=== PATIENT | female | born 1990 | race Caucasian/White ===

== ENCOUNTER 2017-06-06 16:13 | Emergency (ER) | payer MEDICAID ==
[~2017-06-06] VITALS: Ht 165.1 cm; Wt 82.0 kg
[2017-06-06] MEDS ORDERED: IBUPROFEN 600MG TABLET PO STA (23:12)
[2017-06-07 00:35] VITALS: BP 121/76
== END 2017-06-07 00:41 | disposition home or self-care (01) ==
LOC: ER 16:43
DX: S10.93XA Contusion of unspecified part of neck, initial encounter (principal); S00.93XA Contusion of unspecified part of head, initial encounter; S20.219A Contusion of unspecified front wall of thorax, initial encounter; S20.229A Contusion of unspecified back wall of thorax, initial encounter; R51 Headache; R03.0 Elevated blood-pressure reading, without diagnosis of hypertension; V49.49XA Driver injured in collision with other motor vehicles in traffic accident, initial encounter; Y93.89 Activity, other specified; Y92.488 Other paved roadways as the place of occurrence of the external cause
CPT/HCPCS: 71010; 99283

== ENCOUNTER 2022-08-07 21:40 | Emergency (ER) | payer MEDICAID, OTHER ==
[~2022-08-07] VITALS: Ht 165.1 cm; Wt 78.6 kg
[2022-08-08] MEDS ORDERED: BACITRACIN ZINC OINT UDPKT TOP ONE (02:45)
[2022-08-08] MEDS ORDERED: BO1 TP (03:47)
[2022-08-08 03:55] VITALS: BP 108/78
== END 2022-08-08 03:58 | disposition home or self-care (01) ==
LOC: ER 21:40
DX: R23.4 Changes in skin texture (principal); Z98.890 Other specified postprocedural states; Z42.8 Encounter for other plastic and reconstructive surgery following medical procedure or healed injury
CPT/HCPCS: 81025; 99282